=== PATIENT | male | born 1960 | race Caucasian/White ===

== ENCOUNTER → 2016-07-26 | Day surgery (SDC) | payer BC ==
[~2016-07-26] MED LIST: BP PILL; DIAZEPAM PO; HCTZ PO; HYZAAR PO; LIPITOR PO; LORTAB 5/500 TA1 TA1 PO; MEVACOR; MEVACOR PO
--- NOTE | ~2016-07-26 | OR ---
Unit #: [id number] #: [id number] Patient: KESHA BUTLER [id number] [address] [place], [place] [address] [id number] O MR#: [id number] NAME: KESHA BUTLER ROOM: Date of Procedure: 07/26/2016 Admission Date: 07/26/2016 Surgeon: Derek Anthony M.D. : 1960 Attending Physician: Derek Anthony M.D. Primary Care Physician: Luma Braun M.D. OPERATIVE REPORT PREOPERATIVE DIAGNOSES Left ureteral stone, small ureter with multilevel ureteral stricture, and indwelling stent. POSTOPERATIVE DIAGNOSES Left ureteral stone, small ureter with multilevel ureteral stricture, and indwelling stent, with adequate dilation, stone in kidney. PROCEDURES PERFORMED Cystoscopy, left rigid and flexible ureteroscopy, left retrograde pyelography, holmium laser lithotripsy of renal stone, basket extraction of main fragment, stent removal. ANESTHESIA General with local supplementation. INDICATIONS FOR PROCEDURE This 56-year-old man with a 4-mm stone persisting over several emergency department visits, who was brought in 6 weeks ago and the ureter dilated with a balloon and a stent placed due to its multilevel narrowings. He returns having tolerated the stent well for completion treatment. DESCRIPTION OF PROCEDURE The patient was given preoperative antibiotics and satisfactory general anesthesia. In the dorsal lithotomy position, routine prep and drape were performed. The 21-Macedonian rigid cystoscope was introduced with a 30-degree lens and video noting the stent curl in excellent position and without significant calcification. The orifice displayed mild stent cystitis. The distal stent curl was extracted out the meatus and a Sensor guidewire passed up through it. Then, the stent removed and a rigid ureteroscope passed over a second guidewire alongside, but it passed only to the proximal pelvis comfortably. There did not appear to be significant narrowing, but rather simply angulation. Over the second guidewire, I then was able to advance a flexible ureteroscope all the way up to the kidney, although this was somewhat snug along a second guidewire. Unfortunately that ureteroscope appeared flawed and therefore it was opted to remove it before searching further for the stone. During the extraction procedure, however, I noted no stone in the ureter and therefore elected to replace the new ureteroscope over a solitary guidewire and this advanced very easily into the kidney. I searched the calices and could not find the stone until performing a retrograde, which confirmed more methodical search and in a posterior mid calyx less Unit #: [id number] #: [id number] Patient: KESHA BUTLER obviously entered was the stone. It was fortunately covered with a softer sheet metal superintendent yellow external portion, which was chipped into fine fragments at a setting of 0.4 and 12 repetitions per second. After this was complete leaving a solidly 3-mm more darker bronze and fairly round core, this was chipped further to the point where I was certain it would extract with the basket as only one trip down was thought ideal to avoid ureteral trauma. With no significant fragments other than the one described, this was grasped with a 1.9 mm Nitinol basket. It did indeed flowed easily down the ureter as viewed in the basket trailing the ureteroscope. At this point, a Uro-jet was applied in the urethra to complete the procedure. Stone was sent for chemical analysis. The patient will be discharged with a 1 month followup with renal ultrasound and for stone results. Dictated by... Laura Mendoza/callie TD: 07/27/2016 03:04 JOB #: [id number] OPERATIVE REPORT X Derek Anthony MD X PROCEDURE OPERATIVE NOTE
--- NOTE | ~2016-07-26 | EKG ---
PATIENT: KESHA BUTLER UNIT #: [id number] Ventricular Rate: 75 BPM Atrial Rate: 75 BPM P-R Interval: 166 ms QRS Duration: 96 ms Q-T Interval: 394 ms QTC Calculation(Bezet): 439 ms P Mont[place]: 47 degrees Calculated R Mont[place]: 21 degrees Calculated T [place]: 22 degrees Diagnosis Line: Normal sinus rhythm Diagnosis Line: Normal ECG Diagnosis Line: No previous ECGs available Diagnosis Line: Confirmed by RACHEL SCHWARZ MD ([id number]) on 07/27/2016 Diagnosis Line: 5:38:35 PM INTERPRETING MD: CHONG WALKER
[2016-07-26 08:17] LABS: BASOPHIL# 0.1 X10e3 (0-0.3); BASOPHIL% 1.3 % (0-2.5); EOSINOPHIL# 0.3 X10e3 (0-0.7); EOSINOPHIL% 5.5 % (0.0-7.0); HEMOGLOBIN 12.8 gm/dL (13.0-16.0); LYMPHOCYTE# 2.1 X10e3 (1.0-3.5); LYMPHOCYTE% 37.8 % (17.0-45.0); MEAN CELL VOLUME 91.3 FL (83-96); MEAN CORPUSCULAR HGB CONC 32.8 g/dL (30-36); MEAN PLATELET VOLUME 9.1 FL (6.5-11.5); MONOCYTE# 0.6 X10e3 (0-1.0); MONOCYTE% 10.1 % (3.0-12.0); NEUTROPHIL# 2.5 X10e3 (1.5-7.1); NEUTROPHIL% 45.3 % (40-75); PLATELET COUNT 209 X10e3 (140-420); RED BLOOD COUNT 4.27 X10e (3.90-5.60); RED CELL DISTRIBUTION WIDTH 14.3 % (11.0-15.5); WHITE BLOOD COUNT 5.5 X10e3 (4.0-10.5)
[2016-07-26 08:21] LABS: DIFF IND NO
[2016-07-26 08:45] LABS: BLOOD UREA NITROGEN 17 mg/dL (9-23); BUN/CREATININE RATIO 18.88; CALCIUM SERUM 9.2 mg/dL (8.4-10.2); CARBON DIOXIDE 27 mmol/L (22-31); CHLORIDE 105 mmol/L (100-111); CREATININE SERUM 0.9 mg/dL (0.6-1.4); GLOM FILT RATE Estimated ABOVE60 mL/min (>60); GLUCOSE FASTING 104 mg/dL (70-110); POTASSIUM 4.1 mmol/L (3.5-5.1); SODIUM 142 mmol/L (135-145)
== END | disposition home or self-care (01) ==
LOC: CSUR 07:36
PROVIDERS: Urology
DX: N20.2 Calculus of kidney with calculus of ureter (principal); N13.5 Crossing vessel and stricture of ureter without hydronephrosis; I10 Essential (primary) hypertension; E78.5 Hyperlipidemia, unspecified; Z79.82 Long term (current) use of aspirin; Z79.899 Other long term (current) drug therapy
CPT/HCPCS: 80048; 82365; 85025; 88300; 93005; C1758; J0690; J1885; J2250; J2405; J3010

== ENCOUNTER → 2016-08-14 | Outpatient (CLI) | payer BC ==
--- NOTE | ~2016-08-14 | US77 ---
[facility] A Service of [facility] / [facility] RADIOLOGY TEXT RESULTS PATIENT: KESHA BUTLER LOCATION: [facility] : 60 UNIT #: [id number] AGE: [address]: Derek Anthony MD SEX: M ORDER DR: [id number] [place] [id number] [facility]. [place], [place] [address] [id number] O MR#: [id number] Acc #: [id number] NAME: KESHA BUTLER : 1960 SEX: M STUDY DATE/TIME: 08/14/2016 12:24 UNIT: [facility] ROOM: STUDY DESCRIPTION: US Kidney Bilateral Complete Attending Physician: Derek Anthony M.D. Referring Physician: Derek Anthony M.D. Ordering Physician: Derek Anthony M.D. Primary Care Physician: Luma Braun M.D. MEDICAL IMAGING REPORT This report is preliminary unless electronic signature is present EXAM Renal ultrasound, 08/14/2016 HISTORY Kidney stones, followup. Stone removed from left kidney 4 weeks ago. Hypertension, hyperlipidemia. FINDINGS The right kidney measures 12.4 cm while the left kidney measures 12.5 cm in longitudinal dimensions. There is no evidence of hydronephrosis or nephrolithiasis. No cystic or solid mass lesions are seen on either kidney. There is normal renal cortical echogenicity. Two splenic cysts are noted. Images of the bladder are normal. IMPRESSION 1. Negative renal ultrasound. 2. Images of the bladder are normal. 3. Incidental note is made of 2 splenic cysts, the largest of which measures 9.4 cm x 9.7 cm. Dictated by... Irwin Chicas M.D. THIS IS AN ELECTRONICALLY VERIFIED REPORT Iriwn Chicas M.D. at 08/15/2016 10:32 AM KLAUDIA/ekaterina TD: 08/15/2016 00:25 JOB #: [id number] MEDICAL IMAGING REPORT [facility] A Service of [facility] / [facility] RADIOLOGY TEXT RESULTS PATIENT: KESHA BUTLER LOCATION: [facility] : 60 UNIT #: [id number] AGE: [address]: Derek Anthony MD SEX: M ORDER DR: Page 1 of 1 COPY
== END | disposition home or self-care (01) ==
LOC: CGUS 11:50
DX: N20.0 Calculus of kidney (principal)
CPT/HCPCS: 76770